=== PATIENT | female | born 1970 | race Two or more races ===

== ENCOUNTER → 2024-08-03 | Outpatient (CLI) | payer BC, OTHER, SELFPAY ==
--- NOTE | 2024-08-03 09:00 | XR_ITS ---
MRI shoulder, right, without contrast. Date and time: August 03, 2024 at 1016 hours INDICATIONS: Right shoulder and arm pain beginning August 2023 Technique: Multiple axial, sagittal and coronal sections of the shoulder have been obtained. Siemens high-resolution 1.5 Samantha MRI scanner is utilized. Axial fat-suppressed sections, TR 2350, TE 18 T2-weighted coronal fat-saturated images, TR 3500, TE 7100 T1-weighted coronal images, TR 500, TE 15 T2-weighted sagittal fat-saturated images, TR 3500, TE 57 T1-weighted sagittal sections, TR 504, TE 13. Findings: 30 mm full-thickness rotator cuff tear Subscapularis insertion is intact. Subscapularis bursa is not seen. Long head of the biceps is in the bicipital groove. No definite tear of the biceps superior labral anchor is seen. Retraction of the musculotendinous junction of the rotator cuff is evident. Tendinosis pattern is moderate. Distance between the acromium and humeral head is 4.6 mm Atrophy of the supraspinatus muscle is moderate. Atrophy of the infraspinatus muscle is mild. Sagittal sections demonstrate a horizontal acromion. Acromioclavicular joint demonstrates mild osteoarthritis . Osacromiale is not identified. Fraying and irregularity anterior superior labral margins. Bony glenoid fossa on the sagittal sections does not demonstrate osseous defect. Occult fracture or area of avascular necrosis is not seen. Acromioclavicular joint separation is not visible. Defect in the posterolateral margin of the humeral head is not seen Impression: 30 mm full-thickness rotator cuff tear Fraying and irregularity anterior superior labral margins
== END | disposition home or self-care (01) ==
PROVIDERS: PCP Nurse Practitioner Family; Referring Provider Nurse Practitioner Family; Visit Provider Nurse Practitioner Family
DX: M75.101 Unspecified rotator cuff tear or rupture of right shoulder, not specified as traumatic (principal); M25.811 Other specified joint disorders, right shoulder
CPT/HCPCS: 73221

== ENCOUNTER → 2025-02-04 | Outpatient (CLI) | payer BC, SELFPAY ==
--- NOTE | 2025-02-04 13:45 | XR_ITS ---
Examination: Transvaginal ultrasound of the pelvis, complete Technique: Transvaginal sonographic images pelvis performed using forrest scale imaging Exam date and time: February 04, 2025 1438 hours INDICATIONS: Heavy vaginal bleeding beginning 10 minutes ago. FINDINGS: Uterus 9.0 cm Anterior fundal mass 2.2 x 1.7 x 2.6 cm Endometrial stripe 12 mm Right ovary 4.0 cm arterial flow 31 mm cyst Left ovary obscured by bowel gas IMPRESSION: Anterior uterine fundal area probable fibroid degeneration 22 x 26 mm, recommend 6 month follow-up transvaginal pelvic sonography.
--- NOTE | 2025-02-04 13:45 | XR_ITS ---
Examination: Pelvic ultrasound, transabdominal, complete Technique: Transabdominal ultrasound of the pelvis performed using grayscale imaging Date and time of exam: February 04, 2025 1433 hours INDICATIONS: Irregular heavy vaginal bleeding beginning 10 months ago. FINDINGS: Uterus 10.1 cm endometrial stripe 1.1 cm No discrete uterine mass Ovaries obscured by bowel gas IMPRESSION: Limited study No discrete uterine mass
== END | disposition home or self-care (01) ==
LOC: CDIM 14:06
PROVIDERS: PCP Nurse Practitioner Family; Referring Provider Nurse Practitioner Family; Visit Provider Nurse Practitioner Family
DX: N85.9 Noninflammatory disorder of uterus, unspecified (principal)
CPT/HCPCS: 76830; 76856

== ENCOUNTER → 2025-04-18 | Outpatient (CLI) | payer MEDICAID, SELFPAY ==
--- NOTE | 2025-04-18 08:15 | XR_ITS ---
Examination: Screening digital mammography, bilateral Computer aided detection 3-D breast Tomosynthesis, bilateral Date and time of exam: April 18 thousand 25, 0821 hours, compared to mammograms dated to November 03, 2014 Indication: Screening Technique: Nonmagnified MLO, CC views of the breasts to been obtained, reconstructed from 3-D Tomosynthesis images. R2 computer aided detection program utilized for evaluation of suspicious masses and/or abnormal calcifications. 3-D Tomosynthesis images obtained. Findings: The breasts are heterogeneously dense, which may obscure small masses Stable focal asymmetry lower inner left breast compared to 2015 exam No interval suspicious masses Impression: BI-RADS category II: Benign Findings. Recommend 1 year follow-up mammogram.
== END | disposition home or self-care (01) ==
LOC: CDIM 08:01
PROVIDERS: Referring Provider Nurse Practitioner Family; Visit Provider Nurse Practitioner Family
DX: Z12.31 Encounter for screening mammogram for malignant neoplasm of breast (principal); R92.323 Mammographic fibroglandular density, bilateral breasts
CPT/HCPCS: 77063; 77067